=== PATIENT | male | born 1960 | race African-American/Black ===

== ENCOUNTER 2023-05-01 16:30 | Inpatient (IN) | payer OTHER ==
[2023-05-01 17:37] VITALS: BMI 18.5
[2023-05-01] MEDS ORDERED: BENZONATATE 200 MG CAPSULE PO PRN (18:36)
[2023-05-01] MEDS ORDERED: POLYETHYLENE GLYCOL (HEALTHYLAX) 3350 17 GM PACKET PO PRN (18:36)
[2023-05-01] MEDS ORDERED: MAGNESIUM HYDROX 2400MG/30ML ORAL SUSPENSION 30 ML CUP PO PRN (18:36)
[2023-05-01] MEDS ORDERED: DOCUSATE SODIUM 100 MG CAPSULE (FP) PO PRN (18:36)
[2023-05-01] MEDS ORDERED: hydrOXYzine PAMOATE 25 MG CAPSULE (FP) PO PRN (18:36)
[2023-05-01] MEDS ORDERED: BISACODYL 5 MG TABLET.DR (FP) PO PRN (18:36)
[2023-05-01] MEDS ORDERED: guaiFENesin 600 MG TABLET.ER (FP) PO PRN (18:36)
[2023-05-01] MEDS ORDERED: NICOTINE POLACRILEX 2 MG GUM BUC PRN (18:36)
[2023-05-01] MEDS ORDERED: NICOTINE POLACRILEX 2 MG LOZENGE BC PRN (18:36)
[2023-05-01] MEDS ORDERED: BENZOCAINE/MENTHOL (CHLORASEPTIC ) LOZENGE MM PRN (18:36)
[2023-05-01] MEDS ORDERED: MAG HYDROX/AL HYDROX/SIMETH 30 ML UNIT-DOSE CUP PO PRN (18:36)
[2023-05-01] MEDS ORDERED: TUBERCULIN PPD 5 TU/0.1ML VIAL ID ONE ×2 (19:33→22:03)
[2023-05-01] MEDS: THIAMINE HCL 100 MG TABLET (FP) PO SCH (21:50)
[2023-05-01] MEDS: MELATONIN 5 MG TABLETS PO SCH (21:50)
[2023-05-01] MEDS: TUBERCULIN PPD 5 TU/0.1ML SYRINGE (IN PATIENT USE ONLY) ID ONE (22:01)
[2023-05-02] MEDS: PRENATAL VITAMINS W/ FOLIC ACID TABLET (FP) PO SCH (10:07)
[2023-05-02 11:55] LABS: HEMATOCRIT 39.3 % (35.4-49); HEMOGLOBIN 12.8 GM/dL (11.7-16.9); MCH 28.2 pg (25.7-33.7); MCHC 32.6 g/dl (32.0-35.9); MEAN CELL VOLUME 86.6 fl (80-96); MEAN PLT VOLUME 7.8 fl (7.5-11.1); PLATELET COUNT 291 10^3/uL (134-434); RBC 4.54 M/mm3 (4.00-5.60); RDW 13.3 % (11.9-15.9); WHITE BLOOD COUNT 5.2 K/mm3 (4.0-10.0)
[2023-05-02 12:08] LABS: POTASSIUM 4.3 mmol/L (3.5-5.1)
[2023-05-02 12:10] LABS: CALCIUM 8.9 mg/dL (8.5-10.1)
[2023-05-02 12:11] LABS: ALBUMIN 2.9 g/dl (3.4-5.0); BLOOD UREA NITROGEN 12.3 mg/dL (7-18)
[2023-05-02 12:14] LABS: CREATININE 0.8 mg/dL (0.55-1.3)
[2023-05-02 12:15] LABS: BILIRUBIN,TOTAL 0.4 mg/dL (0.2-1); TOT PROT 5.7 g/dl (6.4-8.2)
[2023-05-02 15:48] LABS: PH,URINE 5.5 (5.0-8.0); URINE APPEARANCE CLEAR; URINE BILIRUBIN NEGATIVE (NEGATIVE); URINE COLOR YELLOW; URINE GLUCOSE (UA) NEGATIVE (NEGATIVE); URINE KETONE NEGATIVE (NEGATIVE); URINE LEUK ESTERASE NEGATIVE (NEGATIVE); URINE NITRITE NEGATIVE (NEGATIVE); URINE PROTEIN NEGATIVE (NEGATIVE); URINE UROBILINOGEN 0.2 mg/dL (0.2-1.0)
[2023-05-05] MEDS: TOLNAFTATE 1% CREAM 15 GM TUBE TP SCH (21:52)
[2023-05-12] MEDS: ACETAMINOPHEN 325 MG TABLET (FP) PO PRN (04:08)
[2023-05-12 06:55] VITALS: RESP 18
[2023-05-15] MEDS: NALTREXONE HCL 50 MG TABLET PO ONE (13:12)
[2023-05-16] MEDS: NALTREXONE HCL 50 MG TABLET PO SCH (10:02)
[2023-05-16] MEDS ORDERED: LACTULOSE 20 GM/30 ML UDC (FOR ORAL USE ONLY) PO PRN (16:50)
[2023-05-16] MEDS: LACTULOSE 20 GM/30 ML UDC (FOR ORAL USE ONLY) PO SCH (21:46)
[2023-05-17] MEDS: IBUPROFEN 600 MG TABLET (FP) PO PRN (07:07)
[2023-05-18] MEDS: LOPERAMIDE HCL 2 MG CAPSULE PO PRN (21:29)
[2023-05-19] MEDS: IBUPROFEN 400 MG TABLET (FP) PO PRN (03:30)
[2023-05-21 05:36] VITALS: PULSE 65
[2023-05-21] MEDS: NALTREXONE MICROSPHERES (VIVITROL) 380 MG DISP.SYRIN IM ONE (10:51)
[2023-05-22 07:02] VITALS: BP 108/69; TEMP 98.1
== END 2023-05-22 11:03 | disposition home or self-care (01) | DRG 772 ==
LOC: YASAS 16:30 → Y5N 19:14
PROVIDERS: ADMIT Allergy & Immunology; ATTEND Psychiatry & Neurology Pain Medicine
PROC: HZ42ZZZ Group Counseling for Substance Abuse Treatment, Cognitive-Behavioral (ICD-10-PCS; principal; 2023-05-01)
DX: F10.20 Alcohol dependence, uncomplicated (principal); F14.20 Cocaine dependence, uncomplicated; F12.20 Cannabis dependence, uncomplicated; F17.210 Nicotine dependence, cigarettes, uncomplicated; R79.89 Other specified abnormal findings of blood chemistry; Z85.038 Personal history of other malignant neoplasm of large intestine
CPT/HCPCS: 36415; 80053; 81003; 82140; 85027; 86780; J2315

== ENCOUNTER 2024-01-19 11:08 | Inpatient (IN) | payer OTHER ==
[2024-01-19 11:57] VITALS: BMI 27.4
[2024-01-19] MEDS ORDERED: METHOCARBAMOL 500 MG TABLET PO PRN (12:29)
[2024-01-19] MEDS ORDERED: IBUPROFEN 600 MG TABLET (FP) PO PRN (12:29)
[2024-01-19] MEDS ORDERED: diazePAM 5 MG TABLET PO PRN (12:29)
[2024-01-19] MEDS ORDERED: MAGNESIUM HYDROX 2400MG/30ML ORAL SUSPENSION 30 ML CUP PO PRN (12:29)
[2024-01-19] MEDS ORDERED: hydrOXYzine PAMOATE 25 MG CAPSULE (FP) PO PRN (12:29)
[2024-01-19] MEDS ORDERED: BENZOCAINE/MENTHOL (CHLORASEPTIC ) LOZENGE MM PRN (12:29)
[2024-01-19] MEDS ORDERED: BISMUTH SUBSALICYLATE 262 MG/15 ML BTL PO PRN (12:29)
[2024-01-19] MEDS ORDERED: LOPERAMIDE HCL 2 MG CAPSULE PO PRN (12:29)
[2024-01-19] MEDS ORDERED: DICYCLOMINE HCL 10 MG CAPSULE PO PRN (12:29)
[2024-01-19] MEDS ORDERED: guaiFENesin 600 MG TABLET.ER (FP) PO PRN (12:29)
[2024-01-19] MEDS ORDERED: POLYETHYLENE GLYCOL (HEALTHYLAX) 3350 17 GM PACKET PO PRN (12:29)
[2024-01-19] MEDS ORDERED: ACETAMINOPHEN 325 MG TABLET (FP) PO PRN (12:29)
[2024-01-19] MEDS ORDERED: BENZONATATE 200 MG CAPSULE PO PRN (12:29)
[2024-01-19] MEDS ORDERED: NALOXONE (NARCAN) HCL 4 MG/0.1 ML SPRAY NS PRN (12:29)
[2024-01-19] MEDS ORDERED: IBUPROFEN 400 MG TABLET (FP) PO PRN (12:29)
[2024-01-19] MEDS ORDERED: MAG HYDROX/AL HYDROX/SIMETH 30 ML UNIT-DOSE CUP PO PRN (12:29)
[2024-01-19] MEDS: diazePAM 5 MG TABLET PO SCH (17:54)
[2024-01-19] MEDS: MELATONIN 5 MG TABLETS PO SCH (22:24)
[2024-01-19] MEDS: THIAMINE 100 MG TABLET PO SCH (22:25)
[2024-01-19] MEDS: ONDANSETRON *ODT* 4 MG TABLET SL PRN (22:28)
[2024-01-20] MEDS: PRENATAL VITAMINS W/ FOLIC ACID TABLET (FP) PO SCH (10:44)
[2024-01-20 15:35] LABS: HEMATOCRIT 37.4 % (35.4-49); MCH 28.1 pg (25.7-33.7); MEAN CELL VOLUME 87.7 fl (80-96); MEAN PLT VOLUME 8.1 fl (7.5-11.1); PLATELET COUNT 326 10^3/uL (134-434); RBC 4.27 M/mm3 (4.00-5.60); RDW 13.5 % (11.9-15.9); WHITE BLOOD COUNT 6.6 K/mm3 (4.0-10.0)
[2024-01-20 15:38] LABS: POTASSIUM 4.6 mmol/L (3.5-5.1)
[2024-01-20 15:46] LABS: ALBUMIN 3.5 g/dl (3.4-5.0); BLOOD UREA NITROGEN 18.5 mg/dL (7-18); CALCIUM 9.7 mg/dL (8.5-10.1)
[2024-01-20 15:51] LABS: BILIRUBIN,TOTAL 0.6 mg/dL (0.2-1)
[2024-01-20 15:52] LABS: TOT PROT 6.6 g/dl (6.4-8.2)
[2024-01-21] MEDS: diazePAM 5 MG TABLET PO SCH (05:55)
[2024-01-21] MEDS: NALTREXONE HCL 50 MG TABLET PO SCH (15:32)
[2024-01-22] MEDS: diazePAM 5 MG TABLET PO SCH (06:11)
[2024-01-22] MEDS: NALOXONE (NYS OPIOID OVERDOSE PROGRAM) 4 MG/0.1 ML SPRAY NS SCH (11:42)
[2024-01-23] MEDS: diazePAM 5 MG TABLET PO ONE (06:22)
[2024-01-24 10:11] VITALS: BP 130/89; PULSE 90; RESP 18; TEMP 97.8
== END 2024-01-24 11:38 | disposition home or self-care (01) | DRG 774 ==
LOC: YASAS 11:08 → Y6N 12:47
PROVIDERS: ADMIT Allergy & Immunology; ATTEND Surgery
PROC: HZ2ZZZZ Detoxification Services for Substance Abuse Treatment (ICD-10-PCS; principal; 2024-01-19)
DX: F10.230 Alcohol dependence with withdrawal, uncomplicated (principal); F14.20 Cocaine dependence, uncomplicated; F12.10 Cannabis abuse, uncomplicated; F17.210 Nicotine dependence, cigarettes, uncomplicated; G47.00 Insomnia, unspecified; Z91.013 Allergy to seafood; Z59.01 Sheltered homelessness
CPT/HCPCS: 36415; 80053; 80305; 80307; 85027; 86780; 93005; 93010; Q0162